=== PATIENT | female | born 1945 | race Two or more races ===

== ENCOUNTER 2017-11-06 15:54 | Emergency (ER) | payer BC ==
[~2017-11-06] VITALS: Ht 157.5 cm; Wt 49.9 kg
[2017-11-06 16:10] VITALS: BP 175/69
== END 2017-11-06 17:59 | disposition left against medical advice (07) ==
LOC: ER 15:54
DX: M25.521 Pain in right elbow (principal); Z53.21 Procedure and treatment not carried out due to patient leaving prior to being seen by health care provider
CPT/HCPCS: 73080